=== PATIENT | female | born 1950 | race Caucasian/White ===

== ENCOUNTER 2016-08-30 06:36 | Inpatient (IN) | payer OTHER, MEDICARE ==
[~2016-08-30] VITALS: Ht 167.6 cm; Wt 103.7 kg
[2016-08-30] VITALS (8 sets, daily range): BP systolic 92–127; BP diastolic 56–80; PULSE 66–86; RESP 16–20; TEMP 97.8–98.4; O2SAT 95–98
[~2016-08-30 06:36] MED LIST: ADVAI500I PO; DUONI NEB; GABA300C3 PO; GABA600T PO; HYDR12.56 PO; LISI-360 PO; OXYB5TAB PO; OXYC1SOL5 PO; RIVA10 PO; SIMV20TA OR; THEO200T11 PO; TRAM50 PO; Z.0.CPM; Z.0.WALKERFRONT
[2016-08-30] MEDS ORDERED: SODIUM CHLOR 0.9% 1000 ML INJ 1,000 ML IV SCH (07:04)
--- NOTE | 2016-08-30 07:08 | PD ---
HPI Chief Complaint: GI Complaint Time Seen by Provider: 06:59 Travel History International Travel<30 days: No Contact w/Intl Traveler<30days: No Traveled to known affect area: No History of Present Illness HPI 65-year-old female here for evaluation of abdominal pain, nausea, vomiting, bright red blood per rectum. Patient reports history of diverticulitis, and believe she may be having an acute episode of diverticulitis currently. History of cholecystectomy. Emesis is nonbloody. Abdominal pain started yesterday evening, is lower, described as cramping, currently 10 out of 10, worse with movement and palpation. No rectal pain. No fevers or chills. PFSH Past Medical History Asthma: Yes Cancer: No Cardiovascular Problems: No High Cholesterol: Yes Diabetes: Yes (diet controlled) Patient Takes Glucophage: No Diminished Hearing: No Diverticulitis: Yes Endocrine: Yes GERD: Yes Gout: Yes Genitourinary: No Headaches: Yes Hepatitis: No Hiatal Hernia: No Hypertension: Yes Immune Disorder: No Musculoskeletal: Yes (RIGHT KNEE, GOUT LEFT ARM,PAST HX GOUT IN FEET) Neurologic: Yes (RESTLESS LEG) Psychiatric: No Respiratory: Yes (ASTHMA) Shingles: Yes ?: Not Menopausal: Yes : 4 Para: 3 Miscarriage: 1 Tubal Ligation: Yes Past Surgical History Abdominal Surgery: No (CHOLY) AICD: No Cardiac Surgery: No Cholecystectomy: Yes Ear Surgery: No Endocrine Surgery: No Eye Surgery: No Genitourinary Surgery: No Gynecologic Surgery: Yes (TL, TUBES REMOVED, PARTIAL HYSTERECTOMY) Hysterectomy: Yes Joint Replacement: Yes (ABEBA TKR) Oral Surgery: Yes (TONSILLECTOMY) Pacemaker: No Thoracic Surgery: No Tonsillectomy: Yes Other Surgery: Yes Social History Alcohol Use: No Tobacco Use: No Substance Use: No Allergies-Medications (Allergen,Severity, Reaction): Coded Allergies: Codeine (Verified Allergy, Severe, ITCHING, 08/30/16) TACHYCARIA Hydrocodone (Verified Allergy, Severe, ITCHING, 08/30/16) TACHYCARDIA Reported Meds & Prescriptions Reported Meds & Active Scripts Active Reported Duoneb (Ipratropium-Albuterol Neb) 0.5-2.5 Mg/3 Ml Neb 1 Nebule INH Q4HR NEB PRN Ventolin Hfa 18 GM Inh (Albuterol Sulfate) 90 Mcg/Act Aer 2 Puff INH Q4-6H PRN Cymbalta DR (Duloxetine HCl) 20 Mg Capdr 20 Mg PO DAILY Hydrochlorothiazide 25 Mg Tab 25 Mg PO DAILY Lisinopril 10 Mg Tab 10 Mg PO DAILY Gabapentin 300 Mg Cap 600 Mg PO HS Gabapentin 300 Mg Cap 300 Mg PO BID Breo Ellipta Inh (Fluticasone/Vilanterol) 100-25 Mcg/Act Inh 1 Puff INH DAILY Use daily at the same time. Ditropan (Oxybutynin Chloride) 5 Mg Tab 5 Mg PO Q12HR Tramadol (Tramadol HCl) 50 Mg Tab 50 Mg PO Q6H PRN Simvastatin 20 Mg Tab 20 Mg PO HS Theophylline ER 12 HR (Theophylline) 200 Mg Tab 200 Mg PO Q12H Review of Systems Except as stated in HPI: all other systems reviewed are Neg Physical Exam Narrative GENERAL: Well-developed, well-nourished, mild distress secondary to pain. SKIN: Focused skin assessment warm/dry. HEAD: Atraumatic. Normocephalic. EYES: Pupils equal and round. No scleral icterus. No injection or drainage. ENT: Mucous membranes pink and moist. NECK: Trachea midline. No JVD. CARDIOVASCULAR: Regular rate and rhythm. No murmur appreciated. RESPIRATORY: No accessory muscle use. Clear to auscultation. Breath sounds equal bilaterally. GASTROINTESTINAL: Abdomen soft, nondistended. Moderate diffuse tenderness without peritoneal signs. Normal bowel sounds. RECTUM: Exam performed in the presence of female nurse. No masses, no fissures, no hemorrhoids, heme- negative brown stool. MUSCULOSKELETAL: No obvious deformities. No clubbing. No cyanosis. No edema. NEUROLOGICAL: Awake and alert. No obvious cranial nerve deficits. Motor grossly within normal limits. Normal speech. PSYCHIATRIC: Appropriate mood and affect; insight and judgment normal. Data Data Last Documented VS Vital Signs Date Time Temp Pulse Resp B/P Pulse Ox O2 Delivery O2 Flow Rate FiO2 08/30/16 08:05 70 16 111/56 97 Room Air 08/30/16 06:43 98.4 Orders Complete Blood Count With Diff (08/30/16 07:04) Comprehensive Metabolic Panel (08/30/16 07:04) Lipase (08/30/16 07:04) Lactic Acid (08/30/16 07:04) Prothrombin Time / Inr (Pt) (08/30/16 07:04) Act Partial Throm Time (Ptt) (08/30/16 07:04) Urinalysis - C+S If Indicated (08/30/16 07:04) Ct Abd/Pel W Iv Contrast(Rout) (08/30/16 07:04) Iv Access Insert/Monitor (08/30/16 07:04) Ecg Monitoring (08/30/16 07:04) Oximetry (08/30/16 07:04) Hydromorphone Pf Inj (Dilaudid Pf Inj) (08/30/16 07:15) Ondansetron Inj (Zofran Inj) (08/30/16 07:15) Sodium Chlor 0.9% 1000 Ml Inj (Ns 1000 M (08/30/16 07:04) Sodium Chloride 0.9% Flush (Ns Flush) (08/30/16 07:15) Iohexol 350 Inj (Omnipaque 350 Inj) (08/30/16 08:17) Potassium Chlor 20 Meq Premix (Kcl 20 Me (08/30/16 09:00) Ciprofloxacin 400 Mg Premix (Cipro 400 M (08/30/16 09:00) Metronidazole 500 Mg Inj (Flagyl 500 Mg (08/30/16 09:00) Labs Laboratory Tests Test 08/30/16 08/30/16 06:37 07:50 White Blood Count 10.9 TH/MM3 Red Blood Count 4.28 MIL/MM3 Hemoglobin 13.4 GM/DL Hematocrit 39.3 % Mean Corpuscular Volume 92.0 FL Mean Corpuscular Hemoglobin 31.4 PG Mean Corpuscular Hemoglobin 34.1 % Concent Red Cell Distribution Width 12.1 % Platelet Count 368 TH/MM3 Mean Platelet Volume 9.0 FL Neutrophils (%) (Auto) 84.3 % Lymphocytes (%) (Auto) 5.8 % Monocytes (%) (Auto) 5.6 % Eosinophils (%) (Auto) 0.8 % Basophils (%) (Auto) 3.5 % Neutrophils # (Auto) 9.2 TH/MM3 Lymphocytes # (Auto) 0.6 TH/MM3 Monocytes # (Auto) 0.6 TH/MM3 Eosinophils # (Auto) 0.1 TH/MM3 Basophils # (Auto) 0.4 TH/MM3 CBC Comment DIFF FINAL Differential Comment Prothrombin Time 11.2 SEC Prothromb Time International 1.0 RATIO Ratio Activated Partial 28.9 SEC Thromboplast Time Sodium Level 135 MEQ/L Potassium Level 2.7 MEQ/L Chloride Level 96 MEQ/L Carbon Dioxide Level 29.8 MEQ/L Anion Gap 9 MEQ/L Blood Urea Nitrogen 13 MG/DL Creatinine 0.77 MG/DL Estimat Glomerular Filtration 75 ML/MIN Rate Random Glucose 151 MG/DL Lactic Acid Level 1.7 mmol/L Calcium Level 9.7 MG/DL Total Bilirubin 0.5 MG/DL Aspartate Amino Transf 18 U/L (AST/SGOT) Alanine Aminotransferase 20 U/L (ALT/SGPT) Alkaline Phosphatase 95 U/L Total Protein 7.1 GM/DL Albumin 3.5 GM/DL Lipase 69 U/L Urine Collection Type XX Urine Color YELLOW Urine Turbidity SLIGHT Urine pH 6.5 Urine Specific [place] 1.016 Urine Protein NEG mg/dL Urine Glucose (UA) NEG mg/dL Urine Ketones NEG mg/dL Urine Occult Blood LARGE Urine Nitrite NEG Urine Bilirubin NEG Urine Leukocyte Esterase TRACE Urine RBC 4-9 /hpf Urine WBC 3-5 /hpf Urine Squamous Epithelial > 8 /hpf Cells Urine Transitional Epithelial 0-5 /hpf Cells Urine Amorphous Sediment FEW Microscopic Urinalysis Comment CULT NOT INDICATED Urine Collection Time 0750 MDM Medical Decision Making Medical Screen Exam Complete: Yes Emergency Medical Condition: Yes Medical Record Reviewed: Yes Differential Diagnosis Diverticulitis, colitis, hemorrhoids, AVM, mass, appendicitis, mesenteric ischemia Narrative Course Vital signs show heart rate 86, blood pressure 126/80, pulse ox 98% on room air , oral temp of 98.4F. CBC shows WBC 10.9, hemoglobin 13.4, hematocrit 39.3, platelets 368, neutrophils 84.3%. CMP is remarkable for potassium 2.7, random glucose 151, otherwise essentially unremarkable. Lipase is 69. Lactic acid is 1.7. UA shows large occult blood, trace site esterase, 4-9 RBCs, greater than 8 squamous epithelial cells, negative nitrites, not suggestive of UTI. CT abdomen pelvis: CONCLUSION: 1. Colitis in the splenic flexure and descending colon without perforation or abscess. 2. Diverticulosis of the sigmoid colon. 3. Status post hysterectomy. 4. Status post cholecystectomy. Patient was made aware of all findings. She was given Dilaudid and Zofran. She states that her pain is much improved, however is still present, currently 2 out of 10. Her nausea has also improved, however she still feels nauseous. Parenteral potassium ordered as well as IV Cipro and IV Flagyl. Given the patient's age, ongoing symptoms, and hypokalemia, she will be admitted for overnight observation for further treatment and evaluation. Case discussed with hospitalist Dr. Lockhart who will admit the patient to her service for overnight observation. Diagnosis Primary Impression: Colitis Additional Impressions: Hypokalemia Nausea and vomiting Qualified Code: R11.2 - Nausea and vomiting, intractability of vomiting not specified, unspecified vomiting type Admitting Information Admitting Physician Requests: Observation Umair Velazco MD Aug 30, 2016 07:08
[2016-08-30] MEDS: SODIUM CHLORIDE 0.9% FLUSH 10 ML FLUSH IV FLUSH PRN ×3 (07:12→10:05)
[2016-08-30] MEDS ORDERED: ONDANSETRON HCL 4 MG/2 ML VIAL IVP ONE (07:15)
[2016-08-30] MEDS ORDERED: HYDROmorphone HCL PF 2 MG/ML VIAL IVS ONE (07:15)
[2016-08-30 07:29] LABS: AUTOMATED NEUTROPHIL # 9.2 TH/MM3 (1.8-7.7); BASOPHIL # 0.4 TH/MM3 (0-0.2); BASOPHIL % 3.5 % (0.0-2.0); EOSINOPHIL # 0.1 TH/MM3 (0-0.4); EOSINOPHIL % 0.8 % (0.0-4.0); HEMATOCRIT 39.3 % (35.0-46.0); LYMPH % 5.8 % (9.0-44.0); LYMPHOCYTE # 0.6 TH/MM3 (1.0-4.8); MEAN CORPUSCULAR HEMOGLOBIN 31.4 PG (27.0-34.0); MEAN CORPUSCULAR HGB CONC 34.1 % (32.0-36.0); MONO % 5.6 % (0.0-8.0); NEUT % 84.3 % (16.0-70.0); PLATELET COUNT 368 TH/MM3 (150-450); RED BLOOD COUNT 4.28 MIL/MM3 (4.00-5.30); RED CELL DISTRIBUTION WIDTH 12.1 % (11.6-17.2); WHITE BLOOD COUNT 10.9 TH/MM3 (4.0-11.0)
[2016-08-30 07:34] LABS: HEMO FLAGS DIFF FINAL
[2016-08-30] MEDS ORDERED: SIMV20TA PO (07:35)
[2016-08-30] MEDS ORDERED: OXYB5TAB10 PO (07:35)
[2016-08-30] MEDS ORDERED: THEO200T9 PO (07:35)
[2016-08-30] MEDS ORDERED: TRAM50TA PO (07:35)
[2016-08-30] MEDS ORDERED: FLUT1INH INH (07:36)
[2016-08-30] MEDS ORDERED: GABA300C5 PO ×2 (07:38)
[2016-08-30] MEDS ORDERED: HYDR25TA5 PO (07:39)
[2016-08-30] MEDS ORDERED: LISI10TA3 PO (07:39)
[2016-08-30] MEDS ORDERED: DULO20 PO (07:40)
[2016-08-30] MEDS ORDERED: VENTAER INH (07:41)
[2016-08-30] MEDS ORDERED: IPRASOL INH (07:41)
[2016-08-30 07:42] LABS: APTT (PATIENT) 28.9 SEC (24.3-30.1); PROTHROMBIN TIME - PATIENT 11.2 SEC (9.8-11.6)
[2016-08-30 07:52] LABS: ALKALINE PHOSPHATASE 95 U/L (45-117); ALT (GPT) 20 U/L (10-53); ANION GAP 9 MEQ/L (5-15); AST (GOT) 18 U/L (15-37); BICARBONATE 29.8 MEQ/L (21.0-32.0); BLOOD UREA NITROGEN 13 MG/DL (7-18); CHLORIDE 96 MEQ/L (98-107); GLOMERULAR FILTRATION RATE 75 ML/MIN (>89); SODIUM (NA) 135 MEQ/L (136-145); TOTAL BILIRUBIN ADULT 0.5 MG/DL (0.2-1.0)
[2016-08-30 07:55] LABS: POTASSIUM 2.7 MEQ/L (3.5-5.1)
[2016-08-30 07:59] LABS: BLOOD, URINE LARGE (NEG); GLUCOSE,URINE NEG (NEG); KETONE, URINE NEG (NEG); NITRITE,URINE NEG (NEG); PH, URINE 6.5 (5.0-8.5)
[2016-08-30 08:04] LABS: METHOD OF COLLECTION XX; URINE COLOR YELLOW (YELLW/STRAW)
[2016-08-30 08:06] LABS: COMMENT (UR) CULT NOT INDICATED; COMMENT2 (UR) MUCOUS PRESENT; CULTURE IF INDICATED CULT NOT INDICATED; SQUAMOUS EPITHELIAL CELL URINE > 8 /hpf (0-5); TRANSITIONAL EPI CELLS, URINE 0-5 /hpf
[2016-08-30] MEDS ORDERED: IOHEXOL 350 MG/ML 10 ML VIAL (for RAD DIAG) IV ONE (08:17)
--- NOTE | 2016-08-30 08:53 | RADRPT ---
EXAM DATE/TIME: 08/30/2016 08:04 [facility] COMPARISON: No previous studies available for comparison. INDICATIONS : Lower abdominal pain with blood in stool. IV CONTRAST: 95 cc Omnipaque 350 (iohexol) IV ORAL CONTRAST: No oral contrast ingested. RADIATION DOSE: 22.05 CTDIvol (mGy) MEDICAL HISTORY : Hypertension. Diverticulitis. SURGICAL HISTORY : Cholecystectomy. Tubal ligation.Hysterectomy. ENCOUNTER: Initial ACUITY: 1 day PAIN SCALE: 5/10 LOCATION: Bilateral lower quadrant TECHNIQUE: Volumetric scanning of the abdomen and pelvis was performed. Using automated exposure control and ad justment of the mA and/or kV according to patient size, radiation dose was kept as low as reasonably achievable to obtain optimal diagnostic quality images. DICOM format image data is available electro nically for review and comparison. FINDINGS: LOWER LUNGS: The visualized lower lungs are clear. LIVER: Homogeneous density without lesion. There is no dilation of the biliary tree. Cholecystectomy clips. SPLEEN: Normal size without lesion. PANCREAS: Within normal limits. KIDNEYS: Normal in size and shape. There is no mass, stone or hydronephrosis. ADRENAL GLANDS: Within normal limits. VASCULAR: There is no aortic aneurysm. BOWEL/MESENTERY: Wall thickening within the splenic flexure extending into the descending colon. Slight inflammatory c hanges. No perforation or abscess. There are some scattered diverticula in the sigmoid colon. There is no free intraperitoneal air or fluid. ABDOMINAL WALL: Within normal limits. RETROPERITONEUM: There is no lymphadenopathy. BLADDER: No wall thickening or mass. REPRODUCTIVE: Hysterectomy. INGUINAL: There is no lymphadenopathy or hernia. MUSCULOSKELETAL: Within normal limits for patient age. CONCLUSION: 1. Colitis in the splenic flexure and descending colon without perforation or abscess. 2. Diverticulosis of the sigmoid colon. 3. Status post hysterectomy. 4. Status post cholecystectomy. Jose F Pride MD on August 30, 2016 at 8:48 Board Certified Radiologist. This report was verified electronically.
[2016-08-30] MEDS ORDERED: CIPROFLOXACIN 400 MG PREMIX 200 ML IV ONE (09:00)
[2016-08-30] MEDS ORDERED: metroNIDAZOLE 500 MG INJ 100 ML IV ONE (09:00)
[2016-08-30] MEDS ORDERED: HYDROmorphone HCL PF 1 MG/ML VIAL IV PUSH ONE (09:30)
[2016-08-30] MEDS: SODIUM CHLOR 0.9% 1000 ML INJ 1,000 ML IV SCH ×2 (11:04→19:49)
[2016-08-30] MEDS: POTASSIUM CHLOR 20 MEQ PREMIX 100 ML IV SCH ×2 (12:25→15:01)
--- NOTE | 2016-08-30 13:29 | HHI.HP ---
[facility] Matthew France MD Admission Diagnosis colitis, hypokalemia, nausea and vomiting Diagnoses: Chief Complaint: Abdominal pain Travel History International Travel<30 Days: No Contact w/Intl Traveler <30 Da: No Traveled to Known Affected Are: No History of Present Illness This patient is a very pleasant 65-year-old female with a history of diverticular disease who came to the hospital with 1 day of 10 out of 10 abdominal cramping pain. Pain is diffuse and improved with IV Dilaudid in the emergency room. She did have some associated nonbloody emesis and some bright red blood per rectum which she says is not unusual for her constipation and hemorrhoid issues. Patient notes no fevers or chills. The pain was worse with movement and worse with eating. Patient was seen in emergency room in follow- up for the same. Hemoccult stools were negative in the emergency room. Hemoglobin is stable and normal on her labs. On exam she does have significant abdominal discomfort and hypo-active bowel sounds. She did have CT of abdomen and pelvis done which on my review doesn't show a lot of inflammation and per report does have evidence of colitis. Patient has been recommended for further evaluation and treatment in the hospital for acute colitis. Review of Systems Constitutional: DENIES: Diaphoretic episodes, Fatigue, Fever, Weight gain, Weight loss, Chills, Dizziness, Change in appetite, Night Sweats Endocrine: DENIES: Abnorml menstrual pattern, Heat/cold intolerance, Polydipsia , Polyuria, Polyphagia Eyes: DENIES: Blurred vision, Diplopia, Eye inflammation, Eye pain, Vision loss , Photosensitivity, Double Vision Ears, nose, mouth, throat: DENIES: Tinnitus, Hearing loss, Vertigo, Nasal discharge, Oral lesions, Throat pain, Hoarseness, Ear Pain, Running Nose, Epistaxis, Sinus Pain, Toothache, Odynophagia Respiratory: DENIES: Apneas, Cough, Snoring, Wheezing, Hemoptysis, Sputum production, Shortness of breath Cardiovascular: DENIES: Chest pain, Palpitations, Syncope, Dyspnea on Exertion , PND, Lower Extremity Edema, Orthopnea, Claudication Gastrointestinal: COMPLAINS OF: Abdominal pain, Diarrhea, Nausea, Vomiting Genitourinary: DENIES: Abnormal vaginal bleeding, Dysmenorrhea, Dyspareunia, Sexual dysfunction, Urinary frequency, Urinary incontinence, Urgency, Hematuria , Dysuria, Nocturia, Vaginal discharge Musculoskeletal: DENIES: Joint pain, Muscle aches, Stiffness, Joint Swelling, Back pain, Neck pain Integumentary: DENIES: Abnormal pigmentation, Pruritus, Rash, Nail changes, Breast masses, Breast skin changes, Nipple discharge Hematologic/lymphatic: DENIES: Bruising, Lymphadenopathy Immunologic/allergic: DENIES: Eczema, Urticaria Neurologic: DENIES: Abnormal gait, Headache, Localized weakness, Paresthesias, Seizures, Speech Problems, Tremor, Poor Balance Psychiatric: DENIES: Anxiety, Confusion, Mood changes, Depression, Hallucinations, Agitation, Suicidal Ideation, Homicidal Ideation, Delusions Past Family Social History Past Medical History Hypertension Neuropathy Diabetes mellitus type 2 Hyperlipidemia Past Surgical History Cholecystectomy Hysterectomy Knee replacement (right knee 2, left knee 1) Tonsillectomy Reported Medications Reviewed in the medical record Allergies: Coded Allergies: Codeine (Verified Allergy, Severe, ITCHING, 08/30/16) TACHYCARIA Hydrocodone (Verified Allergy, Severe, ITCHING, 08/30/16) TACHYCARDIA Active Ordered Medications Reviewed in the medical record Family History Mother has diabetes and cancer which she is not sure of the source Social History No tobacco or alcohol dependency, lives with her Physical Exam Vital Signs Vital Signs Date Time Temp Pulse Resp B/P Pulse Ox O2 Delivery O2 Flow Rate FiO2 08/30/16 12:59 97.8 77 18 125/75 96 08/30/16 11:00 14 08/30/16 10:15 76 16 119/69 97 Room Air 08/30/16 09:14 72 16 127/64 97 Room Air 08/30/16 09:00 16 08/30/16 08:05 70 16 111/56 97 Room Air 08/30/16 08:05 16 08/30/16 07:00 16 98 Room Air 08/30/16 07:00 16 08/30/16 06:43 98.4 86 18 126/80 95 Physical Exam GENERAL: This is a well-nourished, well-developed patient, in no apparent distress. SKIN: No rashes, ecchymoses or lesions. Cool and dry. HEAD: Atraumatic. Normocephalic. No temporal or scalp tenderness. EYES: Pupils equal round and reactive. Extraocular motions intact. No scleral icterus. No injection or drainage. ENT: Nose without bleeding, purulent drainage or septal hematoma. Throat without erythema, tonsillar hypertrophy or exudate. Uvula midline. Airway patent. NECK: Trachea midline. No JVD or lymphadenopathy. Supple, nontender, no meningeal signs. CARDIOVASCULAR: Regular rate and rhythm without murmurs, gallops, or rubs. RESPIRATORY: Clear to auscultation. Breath sounds equal bilaterally. No wheezes , rales, or rhonchi. GASTROINTESTINAL: Abdomen soft, diffusely -tender, nondistended. No hepato- splenomegaly, or palpable masses. No guarding. MUSCULOSKELETAL: Extremities without clubbing, cyanosis, or edema. No joint tenderness, effusion, or edema noted. No calf tenderness. Negative Homans sign bilaterally. NEUROLOGICAL: Awake and alert. Cranial nerves II through XII intact. Motor and sensory grossly within normal limits. Five out of 5 muscle strength in all muscle groups. Normal speech. Laboratory Laboratory Tests Test 08/30/16 08/30/16 06:37 07:50 White Blood Count 10.9 Red Blood Count 4.28 Hemoglobin 13.4 Hematocrit 39.3 Mean Corpuscular Volume 92.0 Mean Corpuscular Hemoglobin 31.4 Mean Corpuscular Hemoglobin 34.1 Concent Red Cell Distribution Width 12.1 Platelet Count 368 Mean Platelet Volume 9.0 Neutrophils (%) (Auto) 84.3 Lymphocytes (%) (Auto) 5.8 Monocytes (%) (Auto) 5.6 Eosinophils (%) (Auto) 0.8 Basophils (%) (Auto) 3.5 Neutrophils # (Auto) 9.2 Lymphocytes # (Auto) 0.6 Monocytes # (Auto) 0.6 Eosinophils # (Auto) 0.1 Basophils # (Auto) 0.4 CBC Comment DIFF FINAL Differential Comment Prothrombin Time 11.2 Prothromb Time International 1.0 Ratio Activated Partial 28.9 Thromboplast Time Sodium Level 135 Potassium Level 2.7 Chloride Level 96 Carbon Dioxide Level 29.8 Anion Gap 9 Blood Urea Nitrogen 13 Creatinine 0.77 Estimat Glomerular Filtration 75 Rate Random Glucose 151 Lactic Acid Level 1.7 Calcium Level 9.7 Magnesium Level 1.7 Total Bilirubin 0.5 Aspartate Amino Transf 18 (AST/SGOT) Alanine Aminotransferase 20 (ALT/SGPT) Alkaline Phosphatase 95 Total Protein 7.1 Albumin 3.5 Lipase 69 Urine Collection Type XX Urine Color YELLOW Urine Turbidity SLIGHT Urine pH 6.5 Urine Specific [place] 1.016 Urine Protein NEG Urine Glucose (UA) NEG Urine Ketones NEG Urine Occult Blood LARGE Urine Nitrite NEG Urine Bilirubin NEG Urine Leukocyte Esterase TRACE Urine RBC 4-9 Urine WBC 3-5 Urine Squamous Epithelial > 8 Cells Urine Transitional Epithelial 0-5 Cells Urine Amorphous Sediment FEW Microscopic Urinalysis Comment CULT NOT INDICATED Urine Collection Time 0750 Result Diagram: 08/30/16 0637 08/30/16 0637 Imaging Last Impressions Abdomen/Pelvis CT 08/30/16 0704 Signed Impressions: Service Date/Time: Tuesday, August 30, 2016 08:04 - CONCLUSION: 1. Colitis in the splenic flexure and descending colon without perforation or abscess. 2. Diverticulosis of the sigmoid colon. 3. Status post hysterectomy. 4. Status post cholecystectomy. Jose F Pride MD Assessment and Plan Problem List: (1) Hypokalemia ICD Code: E87.6 Status: Acute Plan: Replace and follow trend (2) Colitis ICD Code: K52.9 Status: Acute Plan: We'll continue with IV narcotics for pain, clear liquid diet, Cipro/ Flagyl IV and follow progress (3) DM2 (diabetes mellitus, type 2) ICD Code: E11.9 Status: Acute Plan: Continue with diet control Currently on nothing by mouth status which we will advance tomorrow if patient improved (4) COPD (chronic obstructive pulmonary disease) ICD Code: J44.9 Status: Acute Plan: Patient will continue with her home medications and bronchodilators. Currently stable without acute exacerbation Assessment and Plan Plan of care to be determined by Hospital course Code Status Full code Physician Certification 2 Midnight Certification Type: Admission for Inpatient Services Order for Inpatient Services The services are ordered in accordance with Medicare regulations or non- Medicare payer requirements, as applicable. In the case of services not specified as inpatient-only, they are appropriately provided as inpatient services in accordance with the 2-midnight benchmark. Estimated LOS (days): 2 2 days is the estimated time the patient will need to remain in the hospital, assuming treatment plan goals are met and no additional complications. Post-Hospital Plan: Kady Ortiz MD Aug 30, 2016 13:29
[2016-08-30] MEDS ORDERED: RESP: ALBUTEROL 2.5 MG/IPRATROPIUM 0.5 MG NEB (PRN) INH (13:30)
[2016-08-30] MEDS ORDERED: metroNIDAZOLE 500 MG INJ 100 ML IV SCH (14:00)
[2016-08-30] MEDS ORDERED: ONDANSETRON HCL 4 MG/2 ML VIAL IV PUSH PRN (14:45)
[2016-08-30] MEDS: HYDROmorphone HCL PF 1 MG/ML VIAL IV PUSH PRN ×2 (15:01→19:58)
[2016-08-30] MEDS: OXYBUTYNIN CHLORIDE 5 MG TAB PO SCH (19:55)
[2016-08-30] MEDS: PRAVASTATIN SOD 40 MG TAB PO SCH (19:55)
[2016-08-30] MEDS: metroNIDAZOLE 500 MG INJ 100 ML IV SCH (19:56)
[2016-08-30] MEDS: CIPROFLOXACIN 400 MG PREMIX 200 ML IV SCH (19:56)
[2016-08-30] MEDS: GABAPENTIN 300 MG CAP PO SCH ×2 (19:57)
[2016-08-31] VITALS: BP 115/68; PULSE 65; RESP 20; TEMP 97.7; O2SAT 93
[2016-08-31] MEDS: metroNIDAZOLE 500 MG INJ 100 ML IV SCH ×3 (02:57→20:08)
[2016-08-31] MEDS: HYDROmorphone HCL PF 1 MG/ML VIAL IV PUSH PRN ×2 (04:59→23:07)
[2016-08-31] MEDS: SODIUM CHLOR 0.9% 1000 ML INJ 1,000 ML IV SCH (05:18)
[2016-08-31 07:11] LABS: BICARBONATE 31.5 MEQ/L (21.0-32.0); POTASSIUM 3.4 MEQ/L (3.5-5.1)
[2016-08-31 08:00] VITALS: BP 118/66; PULSE 70; RESP 19; TEMP 98.2; O2SAT 97
[2016-08-31] MEDS ORDERED: POTASSIUM CHLORIDE 25 MEQ EFFERVESCENT TAB PO ONE (08:30)
[2016-08-31] MEDS: CIPROFLOXACIN 400 MG PREMIX 200 ML IV SCH ×2 (08:56→21:37)
[2016-08-31] MEDS: DULoxetine HCl DR 20 MG CAP PO SCH (08:58)
[2016-08-31] MEDS: OXYBUTYNIN CHLORIDE 5 MG TAB PO SCH ×2 (08:58→21:37)
[2016-08-31] MEDS: FLUTICASONE 100 MCG/VILANTEROL 25 MCG INHALER INH SCH (08:59)
[2016-08-31] MEDS: GABAPENTIN 300 MG CAP PO SCH ×3 (08:59→21:36)
[2016-08-31] MEDS: HYDROCHLOROTHIAZIDE 25 MG TAB PO SCH (08:59)
[2016-08-31] MEDS: LISINOPRIL 10 MG TAB PO SCH (08:59)
[2016-08-31] MEDS: ACETAMINOPHEN 325 MG TAB PO PRN ×3 (09:14→20:17)
[2016-08-31] MEDS: POTASSIUM CHLORIDE 25 MEQ EFFERVESCENT TAB PO SCH ×2 (09:22→21:35)
--- NOTE | 2016-08-31 11:24 | HHI.PR ---
Subjective Remarks Patient seen today in follow-up for colitis. Patient would like to advance her diet. She does have a headache which is mild and improved with Tylenol she feels it would improve also with food. Abdominal pain is 2 out of 10. Potassium 3.4. Care plan discussed with patient, [facility] nursing team and mom in room Objective Vitals Vital Signs Date Time Temp Pulse Resp B/P Pulse Ox O2 Delivery O2 Flow Rate FiO2 08/31/16 10:36 18 08/31/16 08:00 98.2 70 19 118/66 97 08/31/16 00:00 97.7 65 20 115/68 93 08/30/16 20:00 98.0 78 20 117/65 96 08/30/16 16:00 97.8 66 19 92/70 95 08/30/16 15:50 18 08/30/16 12:59 97.8 77 18 125/75 96 I/O 08/30/16 08/30/16 08/30/16 08/31/16 08/31/16 08/31/16 07:00 15:00 23:00 07:00 15:00 23:00 Intake Total 200 ml 640 ml 860 ml Output Total 500 ml Balance -300 ml 640 ml 860 ml Intake Oral 240 ml 60 ml IV Total 200 ml 400 ml 800 ml Output Urine Total 500 ml # Voids 1 5 2 # Bowel Movements 2 0 Result Diagram: 08/30/16 0637 08/31/16 0555 Objective Remarks GENERAL: This is a well-nourished, well-developed patient, in no apparent distress. CARDIOVASCULAR: Regular rate and rhythm without murmurs, gallops, or rubs. RESPIRATORY: Clear to auscultation. Breath sounds equal bilaterally. No wheezes , rales, or rhonchi. GASTROINTESTINAL: Abdomen soft, non-tender, nondistended. Normal active bowel sounds MUSCULOSKELETAL: Extremities without clubbing, cyanosis, or edema. NEURO: Alert & Oriented x4 to person, place, time, situation. Moves all ext x4 A/P Problem List: (1) Hypokalemia ICD Code: E87.6 Status: Acute Plan: Replace and follow trend (2) Colitis ICD Code: K52.9 Status: Acute Plan: We'll continue with IV narcotics for pain, advance diet, Cipro/Flagyl IV and follow progress (3) DM2 (diabetes mellitus, type 2) ICD Code: E11.9 Status: Chronic Plan: Continue with diet control Advance diet (4) COPD (chronic obstructive pulmonary disease) ICD Code: J44.9 Status: Chronic Plan: Patient will continue with her home medications and bronchodilators. Currently stable without acute exacerbation Discharge Planning Likely in a.m. if continues to improve and tolerate diet On oral antibiotics Kady Lockhart MD Aug 31, 2016 11:24
[2016-08-31 12:00] VITALS: BP 99/68; PULSE 70; RESP 19; TEMP 97.4; O2SAT 93
[2016-08-31 16:00] VITALS: BP 112/70; PULSE 66; RESP 19; TEMP 96.6; O2SAT 96
[2016-08-31 20:00] VITALS: BP 102/67; PULSE 67; RESP 20; TEMP 97.1; O2SAT 94
[2016-08-31] MEDS: SODIUM CHLORIDE 0.9% FLUSH 10 ML FLUSH IV FLUSH PRN ×3 (20:15→23:08)
[2016-08-31] MEDS: PRAVASTATIN SOD 40 MG TAB PO SCH (21:37)
[2016-09-01] VITALS: BP 110/64; PULSE 70; RESP 20; TEMP 96.3; O2SAT 97
[2016-09-01] MEDS: metroNIDAZOLE 500 MG INJ 100 ML IV SCH ×2 (03:13→12:20)
[2016-09-01] MEDS: SODIUM CHLORIDE 0.9% FLUSH 10 ML FLUSH IV FLUSH PRN (03:13)
[2016-09-01] MEDS: ACETAMINOPHEN 325 MG TAB PO PRN ×2 (06:38→12:19)
[2016-09-01 08:00] VITALS: BP 101/61; PULSE 78; RESP 18; TEMP 97.7; O2SAT 96
[2016-09-01] MEDS: DULoxetine HCl DR 20 MG CAP PO SCH (09:17)
[2016-09-01] MEDS: GABAPENTIN 300 MG CAP PO SCH (09:17)
[2016-09-01] MEDS: CIPROFLOXACIN 400 MG PREMIX 200 ML IV SCH (09:18)
[2016-09-01] MEDS: LISINOPRIL 10 MG TAB PO SCH (09:18)
[2016-09-01] MEDS: POTASSIUM CHLORIDE 25 MEQ EFFERVESCENT TAB PO SCH (09:18)
[2016-09-01] MEDS: OXYBUTYNIN CHLORIDE 5 MG TAB PO SCH (09:18)
[2016-09-01] MEDS: HYDROCHLOROTHIAZIDE 25 MG TAB PO SCH (09:18)
[2016-09-01] MEDS: FLUTICASONE 100 MCG/VILANTEROL 25 MCG INHALER INH SCH (09:19)
[2016-09-01 09:24] VITALS: BP 108/69; PULSE 76
[2016-09-01] MEDS ORDERED: METR-1 PO (11:32)
[2016-09-01] MEDS ORDERED: CIPR-9 PO (11:32)
--- NOTE | 2016-09-01 11:34 | HHI.DCPOC ---
Discharge Care Plan Diagnosis: (1) DM2 (diabetes mellitus, type 2) (2) Colitis Goals to Promote Your Health * To prevent worsening of your condition and complications * To maintain your health at the optimal level Directions to Meet Your Goals Take your medications as prescribed Follow your dietary instruction Follow activity as directed Keep your appointments as scheduled Take your immunizations and boosters as scheduled If your symptoms worsen call your PCP, if no PCP go to Urgent Care Center or Emergency Room Smoking is Dangerous to Your Health. Avoid second hand smoke Call the 24-hour hour crisis hotline for domestic abuse at Kady Lockhart MD Sep 01, 2016 11:34
--- NOTE | 2016-09-01 11:38 | HHI.DS ---
Discharge Summary Admission Date Aug 30, 2016 at 13:28 Discharge Date: Sep 01, 2016 Admitting Diagnosis colitis, hypokalemia, nausea and vomiting (1) Hypokalemia ICD Code: E87.6 (2) Colitis ICD Code: K52.9 (3) DM2 (diabetes mellitus, type 2) ICD Code: E11.9 (4) COPD (chronic obstructive pulmonary disease) ICD Code: J44.9 Procedures none Brief History - From Admission This patient is a very pleasant 65-year-old female with a history of diverticular disease who came to the hospital with 1 day of 10 out of 10 abdominal cramping pain. Pain is diffuse and improved with IV Dilaudid in the emergency room. She did have some associated nonbloody emesis and some bright red blood per rectum which she says is not unusual for her constipation and hemorrhoid issues. Patient notes no fevers or chills. The pain was worse with movement and worse with eating. Patient was seen in emergency room in follow- up for the same. Hemoccult stools were negative in the emergency room. Hemoglobin is stable and normal on her labs. On exam she does have significant abdominal discomfort and hypo-active bowel sounds. She did have CT of abdomen and pelvis done which on my review doesn't show a lot of inflammation and per report does have evidence of colitis. Patient has been recommended for further evaluation and treatment in the hospital for acute colitis. CBC/BMP: 08/30/16 0637 08/31/16 0555 Significant Findings Laboratory Tests Test 08/30/16 08/30/16 08/31/16 06:37 07:50 05:55 Neutrophils (%) (Auto) 84.3 % (16.0-70.0) Lymphocytes (%) (Auto) 5.8 % (9.0-44.0) Basophils (%) (Auto) 3.5 % (0.0-2.0) Neutrophils # (Auto) 9.2 TH/MM3 (1.8-7.7) Lymphocytes # (Auto) 0.6 TH/MM3 (1.0-4.8) Basophils # (Auto) 0.4 TH/MM3 (0-0.2) Sodium Level 135 MEQ/L (136-145) Potassium Level 2.7 MEQ/L 3.4 MEQ/L (3.5-5.1) (3.5-5.1) Chloride Level 96 MEQ/L (98-107) Estimat Glomerular Filtration 75 ML/MIN (>89) 87 ML/MIN (>89) Rate Random Glucose 151 MG/DL 113 MG/DL (74-106) (74-106) Lipase 69 U/L (73-393) Urine Occult Blood LARGE (NEG) Urine Leukocyte Esterase TRACE (NEG) Urine RBC 4-9 /hpf (0-3) Urine Squamous Epithelial > 8 /hpf (0-5) Cells Blood Urea Nitrogen 5 MG/DL (7-18) Calcium Level 8.2 MG/DL (8.5-10.1) PE at Discharge GENERAL: This is a well-nourished, well-developed patient, in no apparent distress. CARDIOVASCULAR: Regular rate and rhythm without murmurs, gallops, or rubs. RESPIRATORY: Clear to auscultation. Breath sounds equal bilaterally. No wheezes , rales, or rhonchi. GASTROINTESTINAL: Abdomen soft, non-tender, nondistended. Normal active bowel sounds MUSCULOSKELETAL: Extremities without clubbing, cyanosis, or edema. NEURO: Alert & Oriented x4 to person, place, time, situation. Moves all ext x4 Pt update on day of discharge Patient seen and evaluated today in follow-up for abdominal pain and colitis. Tolerated diet well. No new events overnight. Pain resolved Hospital Course Patient is a 65-year-old female with a history diabetes and came in for abdominal discomfort and intestinal symptoms which were related to colitis. Patient was given IV fluids, pain medicine IV as well as antibiotics. She tolerated treatments well and her symptoms resolved. She was discharged home Pt Condition on Discharge: Good Discharge Disposition: Discharge Home Discharge Time: > 30 minutes Discharge Instructions DIET: Follow Instructions for: Diabetic Diet Activities you can perform: Regular-No Restrictions Follow up Referrals: PCP Follow-up - 1 Week New Medications: Ciprofloxacin (Cipro) 500 Mg Tab 500 MG PO BID Infection #20 Ref 0 TAB Metronidazole (Flagyl) 500 Mg Tab 500 MG PO TID Infection #30 Ref 0 TAB Continued Medications: Albuterol 18 GM Inh (Ventolin Hfa 18 GM Inh) 90 Mcg/Act Aer 2 PUFF INH Q4-6H PRN SHORTNESS OF BREATH #1 Ref [address]ox[address] (Cymbalta DR) 20 Mg Capdr 20 MG PO DAILY #30 Ref 0 CAP Fluticasone-Vilanterol Inh (Breo Ellipta Inh) 100-25 Mcg/Act Inh 1 PUFF INH DAILY Use daily at the same time. #1 Ref 0 INHALER Gabapentin (Gabapentin) 300 Mg Cap 300 MG PO BID #60 Ref 0 CAP Gabapentin (Gabapentin) 300 Mg Cap 600 MG PO HS #60 Ref 0 CAP Hydrochlorothiazide (Hydrochlorothiazide) 25 Mg Tab 25 MG PO DAILY #30 Ref 0 TAB Ipratropium-Albuterol Neb (Duoneb) 0.5-2.5 Mg/3 Ml Neb 1 NEBULE INH Q4HR NEB PRN SHORTNESS OF BREATH #120 Ref 0 NEBULE Lisinopril (Lisinopril) 10 Mg Tab 10 MG PO DAILY #30 Ref 0 TAB Oxybutynin (Ditropan) 5 Mg Tab 5 MG PO Q12HR Urinary Symptom Managemen #60 Ref 0 TAB Simvastatin (Simvastatin) 20 Mg Tab 20 MG PO HS Cholesterol Management #30 Ref 0 TAB Theophylline ER 12 HR (Theophylline ER 12 HR) 200 Mg Tab 200 MG PO Q12H #60 Ref 0 TAB Tramadol (Tramadol) 50 Mg Tab 50 MG PO Q6H PRN PAIN SCALE 1 TO 10 Ref 0 TAB Kady Lockhart MD Sep 01, 2016 11:38
[2016-09-01] MEDS ORDERED: LACTTAB8 PO (11:46)
[2016-09-01] MEDS ORDERED: PROT40TA PO (11:46)
[2016-09-01] MEDS ORDERED: SIMETHICONE 80 MG CHEWABLE TAB CHEW ONE (12:45)
[2016-09-01] MEDS: HYDROmorphone HCL PF 1 MG/ML VIAL IV PUSH PRN (12:59)
[2016-09-01 13:00] VITALS: BP 132/79; PULSE 68
== END 2016-09-01 14:56 | disposition home or self-care (01) | DRG 392 ==
LOC: PHED 06:36 → PHEDA 09:10 → PH3A 12:36 → OBSVTOIN 13:28
PROVIDERS: ADMIT Hospitalist; ATTEND Hospitalist
DX: K52.9 Noninfective gastroenteritis and colitis, unspecified (principal); J44.9 Chronic obstructive pulmonary disease, unspecified; G62.9 Polyneuropathy, unspecified; I10 Essential (primary) hypertension; E87.6 Hypokalemia; E11.9 Type 2 diabetes mellitus without complications; K21.9 Gastro-esophageal reflux disease without esophagitis; G25.81 Restless legs syndrome; K57.30 Diverticulosis of large intestine without perforation or abscess without bleeding; E78.5 Hyperlipidemia, unspecified; R51 Headache; M10.9 Gout, unspecified; Z88.5 Allergy status to narcotic agent; Z96.653 Presence of artificial knee joint, bilateral
CPT/HCPCS: 74177; 80048; 80053; 81001; 83605; 83690; 83735; 85025; 85610; 85730; 94664; J0744; J1170; J2405; J3480; J7030; Q9967

== ENCOUNTER 2017-03-03 10:17 | Emergency (ER) | payer MEDICARE, OTHER ==
[~2017-03-03 10:17] MED LIST changes: -ADVAI500I PO; +CIPR-9 PO; +DULO20 PO; -DUONI NEB; +FLUT1INH INH; -GABA300C3 PO; +GABA300C5 PO; -GABA600T PO; -HYDR12.56 PO; +HYDR25TA5 PO; +IPRASOL INH; +LACTTAB8 PO; -LISI-360 PO; +LISI10TA3 PO; +METR-1 PO; -OXYB5TAB PO; +OXYB5TAB8 PO; -OXYC1SOL5 PO; +PROT40TA PO; -RIVA10 PO; -SIMV20TA OR; +SIMV20TA PO; -TRAM50 PO; +TRAM50TA PO; +VENTAER INH; -Z.0.CPM; -Z.0.WALKERFRONT
[2017-03-03 10:28] VITALS: BP 152/98; PULSE 96; RESP 16; TEMP 98.1; O2SAT 95
[2017-03-03 10:39] VITALS: BP 134/78; PULSE 96; RESP 18; O2SAT 97
[2017-03-03] MEDS ORDERED: ATOR20TA15 PO (10:48)
[2017-03-03] MEDS ORDERED: ZITHTAB PO (10:48)
[2017-03-03] MEDS ORDERED: ONDANSETRON HCL 4 MG/2 ML VIAL IV PUSH ONE (11:00)
[2017-03-03] MEDS ORDERED: SODIUM CHLOR 0.9% 1000 ML INJ 1,000 ML IV ONE (11:00)
[2017-03-03] MEDS ORDERED: HYDROmorphone HCL PF 1 MG/ML VIAL IV PUSH ONE (11:00)
--- NOTE | 2017-03-03 11:03 | PD ---
HPI Chief Complaint: Cold / Flu Symptoms Time Seen by Provider: 10:31 Travel History International Travel<30 days: No Contact w/Intl Traveler<30days: No Traveled to known affect area: No History of Present Illness HPI This 66-year-old female says she been sick for about a week. She started coughing about a week ago. Tuesday she will started on a Z-Tomas. She started having vomiting diarrhea yesterday. She has cold spells. She does have a history of asthma. She has a history of osteoarthritis. She is having crampy abdominal pain. She is not aware of fever PFSH Past Medical History Asthma: Yes Cancer: No Cardiovascular Problems: No High Cholesterol: Yes Diabetes: Yes (diet controlled) Patient Takes Glucophage: No Diminished Hearing: No Diverticulitis: Yes Endocrine: Yes Gastrointestinal Disorders: Yes GERD: Yes Gout: Yes Genitourinary: No Headaches: Yes Hepatitis: No Hiatal Hernia: No Hypertension: Yes Immune Disorder: No Musculoskeletal: Yes (RIGHT KNEE, GOUT LEFT ARM,PAST HX GOUT IN FEET) Neurologic: Yes (RESTLESS LEG) Psychiatric: No Reproductive: No Respiratory: Yes (ASTHMA) Shingles: Yes Ulcer: No Influenza Vaccination: Yes ?: Not Menopausal: Yes : 4 Para: 3 Miscarriage: 1 Tubal Ligation: Yes Past Surgical History Abdominal Surgery: No (CHOLY) AICD: No Cardiac Surgery: No Cholecystectomy: Yes Ear Surgery: No Endocrine Surgery: No Eye Surgery: No Genitourinary Surgery: No Gynecologic Surgery: Yes (TL, TUBES REMOVED, PARTIAL HYSTERECTOMY) Hysterectomy: Yes Joint Replacement: Yes (ABEBA TKR) Oral Surgery: Yes (TONSILLECTOMY) Pacemaker: No Thoracic Surgery: No Tonsillectomy: Yes Other Surgery: Yes Social History Alcohol Use: No Tobacco Use: No Substance Use: No Allergies-Medications (Allergen,Severity, Reaction): Coded Allergies: codeine (Unverified Allergy, Severe, ITCHING, 03/03/17) TACHYCARIA hydrocodone (Unverified Allergy, Severe, ITCHING, 03/03/17) TACHYCARDIA Reported Meds & Prescriptions Reported Meds & Active Scripts Active Protonix (Pantoprazole Sodium) 40 Mg Tab 40 Mg PO DAILY Reported Atorvastatin (Atorvastatin Calcium) 20 Mg Tab 20 Mg PO HS Zithromax Z-Tomas (Azithromycin) 250 Mg Dspk 250 Mg PO DIRECTED 500 MG (2 tabs) day 1, then 1 tab days 2-5. Duoneb (Ipratropium-Albuterol Neb) 0.5-2.5 Mg/3 Ml Neb 1 Nebule INH Q4HR NEB PRN Ventolin Hfa 18 GM Inh (Albuterol Sulfate) 90 Mcg/Act Aer 2 Puff INH Q4-6H PRN Cymbalta DR (Duloxetine HCl) 20 Mg Capdr 20 Mg PO DAILY Hydrochlorothiazide 25 Mg Tab 25 Mg PO DAILY Lisinopril 10 Mg Tab 10 Mg PO DAILY Gabapentin 300 Mg Cap 600 Mg PO HS Gabapentin 300 Mg Cap 300 Mg PO BID Ditropan (Oxybutynin Chloride) 5 Mg Tab 5 Mg PO Q12HR Tramadol (Tramadol HCl) 50 Mg Tab 50 Mg PO Q6H PRN Theophylline ER 12 HR (Theophylline) 200 Mg Tab 200 Mg PO Q12H Review of Systems General / Constitutional: Positive: Chills, No: Fever Eyes: No: Diploplia, Blurred Vision HENT: No: Headaches, Vertigo Cardiovascular: No: Chest Pain or Discomfort, Palpitations Respiratory: Positive: Cough, No: Shortness of Breath Gastrointestinal: Positive: Vomiting, Diarrhea Genitourinary: No: Urgency, Frequency Musculoskeletal: No: Myalgias, Arthralgias Skin: No Rash, No Itching Neurologic: Positive: Weakness Endocrine: No: Heat Intolerance Hematologic/Lymphatic: No: Easy Bruising Physical Exam Narrative GENERAL: Well-developed female SKIN: Focused skin assessment warm/dry. HEAD: Atraumatic. Normocephalic. EYES: Pupils equal and round. No scleral icterus. No injection or drainage. ENT: No nasal bleeding or discharge. Mucous membranes pink and moist. NECK: Trachea midline. No JVD. CARDIOVASCULAR: Regular rate and rhythm. No murmur appreciated. RESPIRATORY: No accessory muscle use. Clear to auscultation. Breath sounds equal bilaterally. GASTROINTESTINAL: Abdomen soft, non-tender, nondistended. Hepatic and splenic margins not palpable. MUSCULOSKELETAL: No obvious deformities. No clubbing. No cyanosis. No edema. NEUROLOGICAL: Awake and alert. No obvious cranial nerve deficits. Motor grossly within normal limits. Normal speech. PSYCHIATRIC: Appropriate mood and affect; insight and judgment normal. Data Data Last Documented VS Vital Signs Date Time Temp Pulse Resp B/P (MAP) Pulse Ox O2 Delivery O2 Flow Rate FiO2 03/03/17 11:20 106 18 94/59 (71) 96 Room Air 03/03/17 10:28 98.1 Orders Orders Complete Blood Count With Diff (03/03/17 10:58) Comprehensive Metabolic Panel (03/03/17 10:58) Lipase (03/03/17 10:58) Urinalysis - C+S If Indicated (03/03/17 10:58) Chest, Single Ap (03/03/17 10:58) Sodium Chlor 0.9% 1000 Ml Inj (Ns 1000 M (03/03/17 11:00) Ondansetron Inj (Zofran Inj) (03/03/17 11:00) Hydromorphone Pf Inj (Dilaudid Pf Inj) (03/03/17 11:00) Labs Laboratory Tests Test 03/03/17 11:05 03/03/17 11:07 Urine Collection Type CLEAN CATCH Urine Color YELLOW Urine Turbidity SLIGHT Urine pH 6.0 Urine Specific [place] 1.021 Urine Protein NEG mg/dL Urine Glucose (UA) NEG mg/dL Urine Ketones NEG mg/dL Urine Occult Blood NEG Urine Nitrite NEG Urine Bilirubin NEG Urine Leukocyte Esterase NEG Urine WBC 0-2 /hpf Urine Squamous Epithelial Cells > 8 /hpf Urine Transitional Epithelial Cells 0-5 /hpf Urine Amorphous Sediment MOD Microscopic Urinalysis Comment CULT NOT INDICATED Urine Collection Time 1105 White Blood Count 3.1 TH/MM3 Red Blood Count 4.77 MIL/MM3 Hemoglobin 15.0 GM/DL Hematocrit 46.3 % Mean Corpuscular Volume 97.1 FL Mean Corpuscular Hemoglobin 31.5 PG Mean Corpuscular Hemoglobin Concent 32.4 % Red Cell Distribution Width 12.9 % Platelet Count 232 TH/MM3 Mean Platelet Volume 8.7 FL Neutrophils (%) (Auto) 64.7 % Lymphocytes (%) (Auto) 14.3 % Monocytes (%) (Auto) 19.0 % Eosinophils (%) (Auto) 1.2 % Basophils (%) (Auto) 0.8 % Neutrophils # (Auto) 2.1 TH/MM3 Lymphocytes # (Auto) 0.4 TH/MM3 Monocytes # (Auto) 0.6 TH/MM3 Eosinophils # (Auto) 0.0 TH/MM3 Basophils # (Auto) 0.0 TH/MM3 CBC Comment DIFF FINAL Differential Comment Blood Urea Nitrogen 12 MG/DL Creatinine 0.81 MG/DL Random Glucose 106 MG/DL Total Protein 7.1 GM/DL Albumin 3.6 GM/DL Calcium Level 9.2 MG/DL Alkaline Phosphatase 93 U/L Aspartate Amino Transf (AST/SGOT) 33 U/L Alanine Aminotransferase (ALT/SGPT) 25 U/L Total Bilirubin 0.3 MG/DL Sodium Level 133 MEQ/L Potassium Level 3.9 MEQ/L Chloride Level 94 MEQ/L Carbon Dioxide Level 30.7 MEQ/L Anion Gap 8 MEQ/L Estimat Glomerular Filtration Rate 71 ML/MIN Lipase 87 U/L [facility] Medical Decision Making Medical Screen Exam Complete: Yes Emergency Medical Condition: Yes Medical Record Reviewed: Yes Differential Diagnosis Differential includes influenza, pneumonia, gastroenteritis, adverse medication reaction Narrative Course Chest x-rays negative. White count as low. I believe the patient has influenza. Her vomiting could be a reaction to the Zithromax or part of the influenza. I will recommend that she stop the Zithromax. Diagnosis Primary Impression: Influenza Additional Instructions: Stop Zithromax Scripts Ondansetron Odt (Zofran Odt) 4 Mg Tab 4 MG SL Q6HR Y for Nausea/Vomiting, #10 TAB 0 Refills Prov: Renato Villegas MD 03/03/17 Disposition: 01 DISCHARGE HOME Condition: Stable Renato Villegas MD Mar 03, 2017 11:03
[2017-03-03 11:15] LABS: AUTOMATED NEUTROPHIL # 2.1 TH/MM3 (1.8-7.7); BASOPHIL % 0.8 % (0.0-2.0); EOSINOPHIL % 1.2 % (0.0-4.0); HEMATOCRIT 46.3 % (35.0-46.0); LYMPH % 14.3 % (9.0-44.0); LYMPHOCYTE # 0.4 TH/MM3 (1.0-4.8); MEAN CELL VOLUME 97.1 FL (80.0-100.0); MEAN CORPUSCULAR HEMOGLOBIN 31.5 PG (27.0-34.0); MEAN CORPUSCULAR HGB CONC 32.4 % (32.0-36.0); MEAN PLATELET VOLUME 8.7 FL (7.0-11.0); MONOCYTE # 0.6 TH/MM3 (0-0.9); NEUT % 64.7 % (16.0-70.0); PLATELET COUNT 232 TH/MM3 (150-450); RED BLOOD COUNT 4.77 MIL/MM3 (4.00-5.30); RED CELL DISTRIBUTION WIDTH 12.9 % (11.6-17.2); WHITE BLOOD COUNT 3.1 TH/MM3 (4.0-11.0)
[2017-03-03 11:16] LABS: BILIRUBIN, URINE NEG (NEG); BLOOD, URINE NEG (NEG); GLUCOSE,URINE NEG (NEG); KETONE, URINE NEG (NEG); NITRITE,URINE NEG (NEG); URINE LEUKOCYTE ESTERASE NEG (NEG)
[2017-03-03 11:20] VITALS: BP 94/59; PULSE 106; RESP 18; O2SAT 96
[2017-03-03 11:21] LABS: URINE COLOR YELLOW (YELLW/STRAW)
[2017-03-03 11:21] LABS: CHLORIDE 94 MEQ/L (98-107); SODIUM (NA) 133 MEQ/L (136-145)
[2017-03-03 11:22] LABS: AMORPHOUS SEDIMENT, URINE MOD; SQUAMOUS EPITHELIAL CELL URINE > 8 /hpf (0-5); WBC, URINE 0-2 /hpf (0-5)
[2017-03-03 11:23] LABS: TRANSITIONAL EPI CELLS, URINE 0-5 /hpf
[2017-03-03 11:24] LABS: CALCIUM 9.2 MG/DL (8.5-10.1)
[2017-03-03 11:25] LABS: ALBUMIN 3.6 GM/DL (3.4-5.0); BICARBONATE 30.7 MEQ/L (21.0-32.0); BLOOD UREA NITROGEN 12 MG/DL (7-18); GLUCOSE,RANDOM 106 MG/DL (74-106); LIPASE 87 U/L (73-393)
[2017-03-03 11:28] LABS: ALT (GPT) 25 U/L (10-53); AST (GOT) 33 U/L (15-37); CREATININE 0.81 MG/DL (0.50-1.00); GLOMERULAR FILTRATION RATE 71 ML/MIN (>89)
[2017-03-03 11:30] LABS: TOTAL BILIRUBIN ADULT 0.3 MG/DL (0.2-1.0); TOTAL PROTEIN 7.1 GM/DL (6.4-8.2)
[2017-03-03 11:31] LABS: ALKALINE PHOSPHATASE 93 U/L (45-117)
--- NOTE | 2017-03-03 11:43 | RADRPT ---
EXAM DATE/TIME: 03/03/2017 11:23 [place] COMPARISON: No previous studies available for comparison. INDICATIONS : Cough and vomiting for one week. MEDICAL HISTORY : Hypertension. Diverticulitis SURGICAL HISTORY : Cholecystectomy. Tubal ligation.Hysterectomy ENCOUNTER: Initial ACUITY: 1 week PAIN SCORE: 0/10 LOCATION: Bilateral chest FINDINGS: A single view of the chest demonstrates the lungs to be symmetrically aerated without evidence of mas s, infiltrate or effusion. The cardiomediastinal contours are unremarkable. Osseous structures are intact. CONCLUSION: Normal examination. Calcified granuloma left midlung zone Macho Fletcher MD on March 03, 2017 at 11:41 Board Certified Radiologist. This report was verified electronically.
[2017-03-03] MEDS ORDERED: ZOFR4TAB3 SL (11:55)
[2017-03-03 12:14] VITALS: BP 105/62
== END 2017-03-03 12:16 | disposition home or self-care (01) ==
LOC: PHED 10:17
DX: J11.1 Influenza due to unidentified influenza virus with other respiratory manifestations (principal); E78.00 Pure hypercholesterolemia, unspecified; I10 Essential (primary) hypertension; K21.9 Gastro-esophageal reflux disease without esophagitis; J45.909 Unspecified asthma, uncomplicated
CPT/HCPCS: 71045; 80053; 81001; 83690; 85025; 96361; 96374; 96375; 99284; J1170; J2405; J7030